=== PATIENT | female | born 1985 | race Caucasian/White ===

== ENCOUNTER → 2019-06-29 | Outpatient (REF) | LOC: M LAB 15:16 | PROVIDERS: ATTEND Nurse Practitioner Adult Health | DX: Z02.1 Encounter for pre-employment examination (principal) ==

== ENCOUNTER 2019-09-28 03:40 | Emergency (ER) | payer OTHER ==
[~2019-09-28] VITALS: Ht 160 cm; Wt 90.9 kg
[2019-09-28 04:50] LABS: BASO # 0.1 10^3/uL (0.0-0.2); BASO % 0.9 % (0.0-1.0); EOS # 0.5 10^3/uL (0.0-0.5); EOS % 3.4 % (0.0-3.0); HEMATOCRIT 37.1 % (36.0-47.0); HEMOGLOBIN 11.9 g/dl (12.0-15.5); LYMPH # 3.5 10^3/uL (1.5-5.0); LYMPH % 25.4 % (24.0-44.0); MEAN CORPUSCULAR HEMOGLOBIN 24.6 pg (27.0-33.0); MEAN CORPUSCULAR HGB CONC 32.1 g/dl (32.0-36.5); MEAN CORPUSCULAR VOLUME 76.7 fl (80.0-96.0); MONO # 0.9 10^3/uL (0.0-0.8); MONO % 6.4 % (0.0-5.0); NEUTROPHILS # 8.7 10^3/uL (1.5-8.5); NEUTROPHILS % 63.5 % (36.0-66.0); PLATELET COUNT, AUTOMATED 454 10^3/uL (150-450); RED BLOOD COUNT 4.84 10^6/uL (4.00-5.40); WHITE BLOOD COUNT 13.7 10^3/uL (4.0-10.0)
[2019-09-28 05:11] LABS: HCG, SERUM QUALITATIVE NEGATIVE (NEGATIVE)
[2019-09-28 05:12] LABS: ALBUMIN 4.1 GM/DL (3.2-5.2); ALT/SGPT 18 U/L (12-78); BILIRUBIN,DIRECT < 0.1 MG/DL (0.0-0.2); BILIRUBIN,TOTAL 0.2 MG/DL (0.2-1.0); BLOOD UREA NITROGEN 23 MG/DL (7-18); CALCIUM LEVEL 9.4 MG/DL (8.5-10.1); CARBON DIOXIDE LEVEL 20 MEQ/L (21-32); CHLORIDE LEVEL 111 MEQ/L (98-107); CREATININE FOR GFR 0.87 MG/DL (0.55-1.30); GLOMERULAR FILTRATION RATE > 60.0 (>60); GLUCOSE, FASTING 115 MG/DL (70-100); LIPASE 184 U/L (73-393); SODIUM LEVEL 140 MEQ/L (136-145); TOTAL PROTEIN 7.8 GM/DL (6.4-8.2)
[2019-09-28] MEDS ORDERED: ONDANSETRON 4MG/2ML VIAL (J2405) IV ONE (05:30)
[2019-09-28] MEDS ORDERED: MORPHINE 4 MG/ML 1ML VIAL/SYRINGE (J2270) IV ONE (05:30)
[2019-09-28] MEDS ORDERED: MORPHINE 4 MG/ML 1ML VIAL/SYRINGE (J2270) As Ordered ONE (05:31)
[2019-09-28] MEDS ORDERED: ONDANSETRON 4MG/2ML VIAL (J2405) As Ordered ONE (05:31)
[2019-09-28] MEDS ORDERED: KETOROLAC 30 MG/ML VIAL (J1885) IV ONE (06:30)
[2019-09-28] MEDS ORDERED: NS 1,000 ML IV ONE (06:30)
--- NOTE | 2019-09-28 07:43 | REPVR ---
PROCEDURE INFORMATION: Exam: US Abdomen Limited, Right Upper Quadrant Exam date and time: 09/28/2019 7:33 AM Clinical history: 34 years old, female; Abdominal pain; Acute; Additional info: Ruq pain TECHNIQUE: Imaging protocol: Real-time ultrasound of the abdomen with image documentation. Examination was focused on the right upper quadrant. COMPARISON: No relevant prior studies available. FINDINGS: Liver: Normal. No masses. Gallbladder: The gallbladder is significantly distended measuring up to 11.4 x 5.0 cm. There is suggestion of minimal bladder wall thickening measuring 3-4 mm. Mobile shadowing echogenic stones seen in the gallbladder. Common bile duct: Normal. No stones. No dilation. Pancreas: The pancreatic head and body are unremarkable. The tail of the pancreas is obscured by bowel gas. Right kidney: The right kidney measures 11.4 x 5.3 x 4.7 cm. There is no right renal mass, stone, cyst or hydronephrosis. IMPRESSION: Hydropic gallbladder containing mobile gallstones with minimal gallbladder wall thickening suspicious for cholecystitis. Correlation with LFTs and HIDA scan may be helpful. Electronically signed by: Mack Minor On 09/28/2019 07:43:22 AM
--- NOTE | 2019-09-28 07:53 | ECGEPIP ---
[facility] - ED Test Date: 2019-09-28 Pat Name: DEE CHIANG Department: Room: - Gender: Female Rn Unit Manager: rio : 1985 Requested By: TARA Gamez Order Number: [id number] Reading MD: Alvarado Mckeon Measurements Intervals [place] Rate: 74 P: 30 MD: 168 QRS: 21 QRSD: 101 T: 28 QT: 374 QTc: 415 Interpretive Statements SINUS RHYTHM MODERATE INTRAVENTRICULAR CONDUCTION DELAY NO PRIORS FOR COMPARISON Electronically Signed on 09-28-2019 7:52:49 EST by Alvarado Mckeon
[2019-09-28] MEDS ORDERED: LevoFLOXacin IV 750 MG in IV 1 EA IV ONE (08:45)
[2019-09-28] MEDS ORDERED: FLAG500T PO (11:04)
[2019-09-28] MEDS ORDERED: ONDA4TAB6 PO (11:04)
[2019-09-28] MEDS ORDERED: LEVO750T13 PO (11:04)
[2019-09-28 11:10] VITALS: BP 125/88
--- NOTE | 2019-09-29 13:47 | ED PDOC ---
Post-Departure Follow-Up dr gordillo faxed formal report of forfu Kaylyn Sanchez MD Sep 29, 2019 13:47
== END 2019-09-28 11:16 | disposition home or self-care (01) ==
LOC: M ED 03:40
DX: K80.70 Calculus of gallbladder and bile duct without cholecystitis without obstruction (principal); K82.1 Hydrops of gallbladder; D72.829 Elevated white blood cell count, unspecified; F17.210 Nicotine dependence, cigarettes, uncomplicated
CPT/HCPCS: 76705; 80048; 80076; 83690; 84703; 85025; 93005; 96361; 96365; 96366; 96375; 99284; J1885; J1956; J2270; J2405

== ENCOUNTER 2019-10-03 03:13 | Emergency (ER) | payer OTHER ==
[~2019-10-03] VITALS: Ht 160 cm; Wt 90.9 kg
[~2019-10-03 03:13] MED LIST: FLAG500T PO; LEVO750T13 PO; ONDA4TAB6 PO
[2019-10-03 04:10] LABS: BASO # 0.1 10^3/uL (0.0-0.2); BASO % 0.5 % (0.0-1.0); EOS # 0.5 10^3/uL (0.0-0.5); HEMATOCRIT 36.5 % (36.0-47.0); HEMOGLOBIN 11.6 g/dl (12.0-15.5); LYMPH # 3.5 10^3/uL (1.5-5.0); LYMPH % 31.5 % (24.0-44.0); MEAN CORPUSCULAR HEMOGLOBIN 24.5 pg (27.0-33.0); MEAN CORPUSCULAR HGB CONC 31.8 g/dl (32.0-36.5); MONO # 0.8 10^3/uL (0.0-0.8); MONO % 7.5 % (0.0-5.0); NEUTROPHILS # 6.3 10^3/uL (1.5-8.5); NEUTROPHILS % 56.3 % (36.0-66.0); PLATELET COUNT, AUTOMATED 438 10^3/uL (150-450); RED BLOOD COUNT 4.74 10^6/uL (4.00-5.40); WHITE BLOOD COUNT 11.2 10^3/uL (4.0-10.0)
--- NOTE | 2019-10-03 04:31 | REPVR ---
PROCEDURE INFORMATION: Exam: US Abdomen Limited, Right Upper Quadrant Exam date and time: 10/03/2019 3:55 AM Age: 34 years old Clinical history: Abdominal pain; Epigastric; Additional info: Biliary eval TECHNIQUE: Imaging protocol: Real-time ultrasound of the abdomen with image documentation. Examination was focused on the right upper quadrant. COMPARISON: US Abdomen 09/28/2019 7:25 AM FINDINGS: Liver: The liver is mildly echogenic with attenuation of the ultrasound beam, consistent with fatty liver. Gallbladder: Multiple stones are again seen within the gallbladder. The gallbladder is again distended, measuring approximately 14 cm in length and 4 cm in diameter. The gallbladder wall does not appear significantly thickened. The extractions technologist reports a negative Escobar's sign. Common bile duct: There is no significant biliary ductal dilation. The common bile duct measures 5 mm in diameter. Pancreas: The pancreas appears normal with no ductal dilation but the visibility of the tail of the pancreas was limited by bowel gas. Right kidney: The right kidney is normal in size and echogenicity with no hydronephrosis or stones identified. The right kidney measures 11.2 cm in length. Inferior vena cava: The visualized portion of the inferior vena cava appears unremarkable. IMPRESSION: 1. Cholelithiasis with a distended gallbladder, but no significant gallbladder wall thickening and no sonographic Escobar's sign. The findings are not typical for acute cholecystitis, but could be related to gallbladder hydrops. 2. No significant biliary ductal dilation. 3. Mildly echogenic liver, consistent with mild fatty infiltration. Electronically signed by: Renetta Hannah On 10/03/2019 04:31:24 AM
[2019-10-03 05:00] LABS: HCG, SERUM QUALITATIVE NEGATIVE (NEGATIVE)
[2019-10-03 05:01] LABS: ALBUMIN 3.8 GM/DL (3.2-5.2); ALT/SGPT 41 U/L (12-78); BILIRUBIN,DIRECT < 0.1 MG/DL (0.0-0.2); BILIRUBIN,TOTAL 0.1 MG/DL (0.2-1.0); BLOOD UREA NITROGEN 30 MG/DL (7-18); CALCIUM LEVEL 9.4 MG/DL (8.5-10.1); CARBON DIOXIDE LEVEL 21 MEQ/L (21-32); CHLORIDE LEVEL 108 MEQ/L (98-107); CREATININE FOR GFR 0.96 MG/DL (0.55-1.30); GLOMERULAR FILTRATION RATE > 60.0 (>60); GLUCOSE, FASTING 98 MG/DL (70-100); LIPASE 186 U/L (73-393); POTASSIUM SERUM 3.9 MEQ/L (3.5-5.1); SODIUM LEVEL 141 MEQ/L (136-145); TOTAL PROTEIN 7.4 GM/DL (6.4-8.2)
[2019-10-03] MEDS ORDERED: NORCO 5/325MG TABLET (BULK FOR ED) PO ONE (05:45)
[2019-10-03] MEDS ORDERED: KETOROLAC 60 MG/2 ML VIAL (J1885) IM ONE (05:45)
[2019-10-03 05:54] VITALS: BP 140/82
--- NOTE | 2019-10-03 19:50 | ED PDOC ---
Post-Departure Follow-[facility] Kaylyn Sanchez MD Oct 03, 2019 19:50
== END 2019-10-03 05:57 | disposition home or self-care (01) ==
LOC: M ED 03:13
DX: K80.20 Calculus of gallbladder without cholecystitis without obstruction (principal); F17.210 Nicotine dependence, cigarettes, uncomplicated
CPT/HCPCS: 36415; 76705; 80048; 80076; 83690; 84703; 85025; 96372; 99284; J1885

== ENCOUNTER 2019-11-23 12:25 | Day surgery (SDC) | payer OTHER ==
[~2019-11-23] VITALS: Ht 160 cm; Wt 93.8 kg
[~2019-11-23 12:25] MED LIST changes: +BUPIVACAINE/EPIN 0.25% 30 ML VIAL As Ordered ONE; +KETOROLAC 60 MG/2 ML VIAL (J1885) As Ordered ONE; +LR 1,000 ML IV ONE; +ceFAZolin SOD 1 GM in D5W MINI-BAG PLUS 50 ML IV ONE
[2019-11-23] MEDS ORDERED: LIDOCAINE 2% INJ 100 MG/5 ML SDV (FOR ANES.) As Ordered ONE (14:04)
[2019-11-23] MEDS ORDERED: ROCURONIUM BROMIDE 50 MG/5 ML VIAL As Ordered ONE (14:04)
[2019-11-23] MEDS ORDERED: propofoL 200 MG/20 ML VIAL As Ordered ONE (14:04)
[2019-11-23] MEDS ORDERED: fentaNYL 250 MCG/5 ML INJECTION (J3010) As Ordered ONE (14:05)
[2019-11-23] MEDS ORDERED: MIDAZOLAM INJ 2 MG/2 ML VIAL (J2250) As Ordered ONE (14:05)
[2019-11-23] MEDS ORDERED: PHENYLephrine HCL 500 MCG/5 ML (100MCG/ML) SYRINGE (J2370) As Ordered ONE (15:18)
[2019-11-23] MEDS ORDERED: dexameTHASONE 4 MG/ML 1ML VIAL (J1100) As Ordered ONE (15:35)
[2019-11-23] MEDS ORDERED: KETOROLAC 60 MG/2 ML VIAL (J1885) As Ordered ONE (15:35)
[2019-11-23] MEDS ORDERED: ONDANSETRON 4MG/2ML VIAL (J2405) As Ordered ONE (15:35)
[2019-11-23] MEDS ORDERED: ACETAMINOPHEN 1000MG 100ML IV BTL (OFIRMEV) (J0131 PER 10MG) As Ordered ONE (15:45)
[2019-11-23] MEDS ORDERED: SUGAMMADEX SODIUM 500 MG/5 ML VIAL (BRIDION) As Ordered ONE (15:50)
[2019-11-23] MEDS ORDERED: fentaNYL 100 MCG/2 ML INJECTION (J3010) As Ordered ONE (15:55)
[2019-11-23] MEDS ORDERED: METOCLOPRAMIDE INJ 10MG/2ML VIAL (J2765) As Ordered ONE (16:02)
[2019-11-23] MEDS ORDERED: diphenhydrAMINE INJ 50MG/ML VIAL (J1200) As Ordered ONE (16:10)
[2019-11-23] MEDS ORDERED: LR 1,000 ML IV SCH (16:30)
[2019-11-23] MEDS ORDERED: NORCO, ANEXSIA 5/325MG TABLET (HYDROcodone/ACETAMINOPHEN) PO PRN (16:30)
[2019-11-23] MEDS ORDERED: ONDANSETRON 4MG/2ML VIAL (J2405) IV PRN ×2 (16:30)
[2019-11-23] MEDS ORDERED: oxyCODONE 5MG TAB PO PRN (16:30)
[2019-11-23] MEDS ORDERED: HYDROMORPHONE HCL 0.5 MG/ 0.5 ML SYRINGE (J1170 PER 1) IV PRN (16:30)
[2019-11-23] MEDS ORDERED: fentaNYL 100 MCG/2 ML INJECTION (J3010) IV PRN (16:30)
[2019-11-23] MEDS ORDERED: PROMETHAZINE INJ 25 MG/ML VIAL (J2550) IV PRN (16:30)
--- NOTE | 2019-11-23 16:55 | RO ---
DATE OF PROCEDURE: 11/23/2019 PREPROCEDURE DIAGNOSIS: History of cholecystitis. POSTPROCEDURE DIAGNOSIS: History of cholecystitis. PROCEDURE: Laparoscopic cholecystectomy. SURGEON: Dr. Balaji June COMPLIANCE AUDITOR: ANESTHESIA: General endotracheal anesthesia. ESTIMATED BLOOD LOSS: Minimal. FLUIDS: Crystalloid. DESCRIPTION OF PROCEDURE: Brief procedure summary: The patient was brought to the operating room, was given general anesthesia. After adequate anesthesia and preoperative antibiotics were given, the patient was prepped and draped in the usual sterile fashion. Next, a supraumbilical incision was made with a skin knife. Blunt dissection was carried down to fascia. Fascia was entered with Veress needle and insufflated to 15 mmHg of pressure. Dilating 10 mm trocar was placed at this time and under direct visualization, an epigastric and two lateral trocars were placed. Next, gallbladder was grasped, retracted superiorly, adhesions to the gallbladder were taken down with hook cautery and then the neck of the gallbladder was cleared of peritoneum with the hook cautery. The cystic artery and cystic duct were well visualized and a clear window behind the neck of the gallbladder was created with hook cautery and blunt dissection. After this critical view of safety was obtained, the cystic artery was clipped proximally and distally and transected. Then, the cystic duct was clipped proximally and distally and transected. The gallbladder was removed from the gallbladder bed using electrocautery, placed in an Endo Catch bag and brought out through the umbilicus. #0 Vicryl was used to close the fascia at the umbilicus after the right upper quadrant was copiously irrigated until clear and all trocars were removed under direct visualization. #4-0 Vicryl was used to close all skin incisions. Steri-Strips and a dry sterile dressing was applied. The patient was awakened, extubated and brought to the recovery room awake, alert, and hemodynamically stable. Sponge and needle counts were correct times two.
[2019-11-23 18:02] VITALS: BP 115/82
== END 2019-11-23 18:10 | disposition home or self-care (01) ==
LOC: M SDC 12:25
PROVIDERS: ATTEND Surgery
DX: K80.10 Calculus of gallbladder with chronic cholecystitis without obstruction (principal); F17.218 Nicotine dependence, cigarettes, with other nicotine-induced disorders
CPT/HCPCS: 47562; 81025; 88304; J0131; J0690; J1100; J1200; J1885; J2250; J2370; J2405; J2765; J3010

== ENCOUNTER → 2022-08-03 | Outpatient (REF) | payer OTHER ==
[~2022-08-03] MED LIST changes: -BUPIVACAINE/EPIN 0.25% 30 ML VIAL As Ordered ONE; -KETOROLAC 60 MG/2 ML VIAL (J1885) As Ordered ONE; +LEVO1TAB40 PO; -LEVO750T13 PO; -LR 1,000 ML IV ONE; -ceFAZolin SOD 1 GM in D5W MINI-BAG PLUS 50 ML IV ONE
[2022-08-03 20:09] LABS: APPEARANCE, URINE MANUAL HAZY (CLEAR); BILIRUBIN, URINE MANUAL NEGATIVE (NEGATIVE); BLOOD URINE MANUAL POSITIVE (NEGATIVE); COLOR, URINE MANUAL DK YELLOW (YELLOW); GLUCOSE, URINE (UA) MANUAL NEGATIVE (NEGATIVE); KETONE, URINE MANUAL NEGATIVE (NEGATIVE); LEUKOCYTE ESTERASE, URINE MAN POSITIVE (NEGATIVE); NITRITE, URINE MANUAL POSITIVE (NEGATIVE); PROTEIN, URINE MANUAL 2+ mg/dL (NEGATIVE); SPECIFIC GRAVITY,URINE MANUAL 1.019 (1.002-1.035); UROBILINOGEN, URINE MANUAL NORMAL (NORMAL)
[2022-08-03 20:19] LABS: BACTERIA, URINE LARGE AMOUNT; HYALINE CAST, URINE NONE SEEN /lpf (0-1); MUCUS, URINE LARGE AMOUNT (NEGATIVE); SQUAMOUS EPITHELIAL CELL URINE LARGE AMOUNT /hpf (SMALL AMT); WBC, URINE TNTC /hpf (0-3)
== END ==
LOC: M LAB REF 19:17
PROVIDERS: ATTEND Physician Assistant Medical
DX: N39.0 Urinary tract infection, site not specified (principal)

== ENCOUNTER 2024-10-30 12:01 | Emergency (ER) | payer OTHER ==
[~2024-10-30] VITALS: Ht 160 cm; Wt 103.8 kg
[~2024-10-30 12:01] MED LIST changes: +ONDA-282 PO; -ONDA4TAB6 PO
[2024-10-30] MEDS ORDERED: OSEL75CA PO (14:07)
[2024-10-30] MEDS: ACETAMINOPHEN 325 MG TAB PO ONE (14:12)
[2024-10-30 14:13] VITALS: BP 129/79; TEMP 98.9; O2SAT 99
== END 2024-10-30 14:34 | disposition home or self-care (01) ==
LOC: M ED 12:01
DX: O98.511 Other viral diseases complicating pregnancy, first trimester (principal); J09.X2 Influenza due to identified novel influenza A virus with other respiratory manifestations; Z3A.13 13 weeks gestation of pregnancy; Z20.89 Contact with and (suspected) exposure to other communicable diseases

== ENCOUNTER 2024-11-01 13:22 | Emergency (ER) | payer OTHER ==
[~2024-11-01] VITALS: Ht 160 cm; Wt 114.2 kg
[~2024-11-01 13:22] MED LIST changes: +OSEL75CA PO
[2024-11-01 13:25] VITALS: BP 117/77; TEMP 98.1; O2SAT 98
[2024-11-01 14:50] LABS: APPEARANCE, URINE HAZY (CLEAR); BACTERIA, URINE AUTO 1+ (NEGATIVE); BILIRUBIN, URINE AUTO NEGATIVE (NEGATIVE); BLOOD, URINE BLOOD NEGATIVE (NEGATIVE); COLOR, URINE YELLOW (YELLOW); GLUCOSE, URINE (UA) AUTO NEGATIVE (NEGATIVE); KETONE, URINE AUTO NEGATIVE (NEGATIVE); LEUKOCYTE ESTERASE, URINE AUTO 3+ (NEGATIVE); NITRITE, URINE AUTO NEGATIVE (NEGATIVE); PROTEIN, URINE AUTO 1+ mg/dL (NEGATIVE); RBC, URINE AUTO 3 /HPF (0-3); SPECIFIC GRAVITY URINE AUTO 1.017 (1.002-1.035); SQUAMOUS EPITHELIAL CELL UR AU 12 /HPF (0-6); UROBILINOGEN, URINE AUTO 0.2 mg/dL (0.0-2.0); WBC, URINE AUTO 28 /HPF (0-3)
[2024-11-01] MEDS ORDERED: CEPH500C PO (15:35)
== END 2024-11-01 15:44 | disposition home or self-care (01) ==
LOC: M ED 13:22
DX: O23.41 Unspecified infection of urinary tract in pregnancy, first trimester (principal); Z3A.13 13 weeks gestation of pregnancy; O99.331 Smoking (tobacco) complicating pregnancy, first trimester; F17.210 Nicotine dependence, cigarettes, uncomplicated